=== PATIENT | female | born 1940 | race Caucasian/White ===

== ENCOUNTER 2018-11-11 08:11 | Inpatient (IN) | payer BC, OTHER ==
--- NOTE | 2018-11-11 08:56 | PDOC ---
History of Present Illness - General Chief Complaint: Bone Injury Stated Complaint: right hip fracture for surgery today Time Seen by Provider: 11/11/18 08:16 History Source: Patient Exam Limitations: No Limitations - History of Present Illness Initial Comments: 11/11/18 08:47 High functioning 77-year-old female presents from orthopedic process with diagnosis of right hip fracture. Patient was in usual state of good health, [place] the airport and [place] a mechanical trip and fall after her right foot got stuck on a carpet. She fell to the ground striking her right hip and right head. Regarding the head injury, she had localized pain to her right scalp for acute days which has resolved, never had generalized headache/vision change/speech change/nausea/vomiting/focal deficit. She does not take any blood thinners. Had right hip pain immediately, predominantly in the groin region, and was ambulating with discomfort throughout the week. She did sustain a second fall 4 days ago when she slipped off the edge of her bed and fell a short distance to the ground, striking her buttock and right hip again. Occasional paresthesias to the right leg, otherwise no motor or sensory deficit. Describes pain with some positional changes and weightbearing, otherwise has been ambulating with the use of a cane throughout the week. Saw orthopedics yesterday, x-ray confirmed a femoral neck fracture, brought in for management. Patient has no other complaints. No fevers or chills, no night sweats, no weight loss No chest pain or palpitations, no lightheadedness or syncope. No shortness of breath/cough. No leg swelling/discoloration. Has been taking naproxen for pain relief. Past History - Past Medical History Allergies/Adverse Reactions: Allergies Allergy/AdvReac Type Severity Reaction Status Date / Time No Known Allergies Allergy Verified 11/11/18 08:13 Home Medications: Ambulatory Orders Hydroxychloroquine Sulfate [Plaquenil] 200 mg PO BID 11/11/18 COPD: No Other medical history: Arthritis - Suicide/Smoking/Psychosocial Hx Smoking History: Never smoked Hx Alcohol Use: Yes (1 glass wine daily at night.) Drug/Substance Use Hx: No Review of Systems - Review of Systems Constitutional: No: Chills, Fever, Night Sweats HEENTM: No: Recent change in vision, Difficulty Swallowing Respiratory: No: Cough, Shortness of Breath Cardiac (ROS): No: Chest Pain, Edema, Lightheadedness, Syncope ABD/GI: No: Nausea, Vomiting : No: Incontinence Musculoskeletal: Yes: Joint Pain. No: Back Pain Integumentary: No: Bruising Neurological: Yes: Tingling. No: Headache, Weakness, Dizziness All Other Systems: Reviewed and Negative *Physical Exam - Vital Signs Last Vital Signs Temp Pulse Resp BP Pulse Ox 97.7 F 66 16 160/83 100 11/11/18 08:13 11/11/18 08:13 11/11/18 08:13 11/11/18 08:13 11/11/18 08:13 - Physical Exam Comments: 11/11/18 08:51 Vital signs as noted, blood pressure slightly elevated General: Patient is alert and in no acute distress. Speech is clear and appropriate. Head: Atraumatic and nontender. Resolving 1cm R occipital scalp hematoma without bruising or skull deformity. HEENT: Pupils are equal round and reactive to light, extraocular movements are intact. No facial deformity/tenderness, no septal hematoma. The oropharynx is clear. Neck: The trachea is midline, there is no stridor. There is no midline cervical spine tenderness, full range of motion of neck. Chest: Nontender, no ecchymosis or abrasions. Heart: S1-S2, regular rate and rhythm. No murmurs. Lungs: Clear to auscultation bilaterally. Symmetric chest rise. Abdomen: Soft/nontender/nondistended. Bowel sounds are normal. There is no abdominal or flank ecchymosis. Back/Pelvis: There is no midline spine tenderness or step-off. Pelvis is stable and nontender. Extremities: There is no extremity deformity or joint swelling. Tender to palpation over anterior R hip, otherwise intact ROM. No other focal bony tenderness throughout. 2+ distal pulses throughout. Neuro: Alert and oriented x3. Cranial nerves II through XII are intact. 5 out of 5 motor strength x4 extremities. Gait is antalgic favoring R hip using walker. Skin: No abrasions/hematomas/lacerations. Psych: Affect is appropriate. Heart Score/ECG Review #1 ECG reviewed & interpreted by me at: 08:54 General ECG Interpretation: Sinus Rhythm, Normal Rate (54), Normal Intervals ( qtc 434), No acute ischemic changes ED Treatment Course - LABORATORY CBC & Chemistry Diagram: 11/11/18 08:27 11/11/18 08:27 - RADIOLOGY Radiology Studies Ordered: Category Date Time Status CHEST - PA [RAD] Stat Radiology 11/11/18 08:17 Ordered HIP & PELVIS-RIGHT [RAD] Stat Radiology 11/11/18 08:17 Ordered Medical Decision Making - Medical Decision Making 11/11/18 08:56 77-year-old female status post mechanical fall 8 days ago with right hip fracture, neurovascularly intact and without any other injuries. Minor head injury, not on blood thinners, neurologically intact without red flags on history or physical exam. Preop labs, EKG Chest x-ray, right hip/pelvis x-ray Does not need pain medication Nothing by mouth for OR Dr. Sylvester aware and scheduled to operate Admit 11/11/18 09:17 labs nl, Na 134 receiving iv fluids. 11/11/18 10:15 cxr normal, confirmed impacted R hip fem neck fracture. Accepted for m/s inpatient by Dr. Rider, signout given to KJ Estrella. *DC/Admit/Observation/Transfer Diagnosis at time of Disposition: Closed right hip fracture Qualifiers: Encounter type: initial encounter Qualified Code(s): S72.001A - Fracture of unspecified part of neck of right femur, initial encounter for closed fracture - Discharge Dispostion Condition at time of disposition: Stable Decision to Admit order: Yes - Referrals Referrals: Hilton Valladares MD [Primary Care Provider] - - Patient Instructions - Post Discharge Activity
[2018-11-11] MEDS: SODIUM CHLORIDE 1,000 ML IV SCH (09:02)
[2018-11-11 09:08] LABS: BASO % 0.6 % (0-2.0); EOS % 1.5 % (0-4.5); HEMATOCRIT 39.5 % (32.4-45.2); HEMOGLOBIN 13.3 GM/dl (10.7-15.3); MCH 31.9 pg (25.7-33.7); MCHC 33.6 g/dl (32.0-36.0); MEAN CELL VOLUME 94.8 fl (80-96); NEUT % 67.9 % (42.8-82.8); PLATELET COUNT 272 K/MM3 (134-434); RBC 4.17 M/mm3 (3.60-5.2); RDW 13.1 % (11.6-15.6); WHITE BLOOD COUNT 4.9 K/mm3 (4.0-10.8)
[2018-11-11 09:15] LABS: ALBUMIN 3.8 g/dl (3.4-5.0); ALK PHOS 56 U/L (45-117); ANION GAP 9 MMOL/L (8-16); BILIRUBIN,TOTAL 0.7 mg/dl (0.2-1); BLOOD UREA NITROGEN 12 mg/dl (7-18); CALCIUM 9.1 mg/dl (8.5-10); CHLORIDE 100 mmol/L (98-107); CO2 25 mmol/L (21-32); CREATININE 0.6 mg/dl (0.55-1.3); GLUCOSE,RANDOM 93 mg/dl (74-106); POTASSIUM 4.4 mmol/L (3.5-5.1); SGOT/AST 20 U/L (15-37); SGPT/ALT 15 U/L (13-61); SODIUM 134 mmol/L (136-145); TOT PROT 6.3 g/dl (6.4-8.2)
[2018-11-11 09:19] LABS: INR 1.06 (0.82-1.09); PROTHROMBIN TIME (PATIENT) 11.8 SEC (10.2-13.0)
--- NOTE | 2018-11-11 11:03 | HP ---
CHIEF COMPLAINT: Right hip pain PCP: HISTORY OF PRESENT ILLNESS: 77 year-old female with a PMH significant for arthritis presented from her orthopedist's office with report of right hip fracture. Eight days ago she had a mechanical fall at an airport. She fell to the ground striking her right hip and right head. She immediately experienced right hip pain, predominantly in the groin region, and was ambulating with a cane with discomfort throughout the week. She sustained a second fall 4 days ago when she slipped off the edge of her bed and fell a short distance to the ground, striking her buttock and right hip again. Occasional paresthesias to the right leg, otherwise no motor or sensory deficit. Describes pain with some positional changes and weight bearing Saw orthopedics yesterday, x-ray confirmed a femoral neck fracture, brought in for management. ER course was notable for: (1) BP 181/94 (2) Right hip Xray: impaction fracture Recent Travel: No PAST MEDICAL HISTORY: Arthritis PAST SURGICAL HISTORY: None reported Social History: Smoking: never Alcohol: 1 glass wine at night Drugs: no Family History: Allergies No Known Allergies Allergy (Verified 11/11/18 08:13) HOME MEDICATIONS: Home Medications Medication Instructions Recorded Hydroxychloroquine Sulfate 200 mg PO BID 11/11/18 [Plaquenil] REVIEW OF SYSTEMS CONSTITUTIONAL: Absent: fever, chills, diaphoresis, generalized weakness, malaise, loss of appetite, weight change HEENT: Absent: rhinorrhea, nasal congestion, throat pain, throat swelling, difficulty swallowing, mouth swelling, ear pain, eye pain, visual changes CARDIOVASCULAR: Absent: chest pain, syncope, palpitations, irregular heart rate, lightheadedness , peripheral edema RESPIRATORY: Absent: cough, shortness of breath, dyspnea with exertion, orthopnea, wheezing, stridor, hemoptysis GASTROINTESTINAL: Absent: abdominal pain, abdominal distension, nausea, vomiting, diarrhea, constipation, melena, hematochezia GENITOURINARY: Absent: dysuria, frequency, urgency, hesitancy, hematuria, flank pain, genital pain MUSCULOSKELETAL: +right hip pain Absent: myalgia, arthralgia, joint swelling, back pain, neck pain SKIN: Absent: rash, itching, pallor HEMATOLOGIC/IMMUNOLOGIC: Absent: easy bleeding, easy bruising, lymphadenopathy, frequent infections ENDOCRINE: Absent: unexplained weight gain, unexplained weight loss, heat intolerance, cold intolerance NEUROLOGIC: Absent: headache, focal weakness or paresthesias, dizziness, unsteady gait, seizure, mental status changes, bladder or bowel incontinence PSYCHIATRIC: Absent: anxiety, depression, suicidal or homicidal ideation, hallucinations. PHYSICAL EXAMINATION Vital Signs - 24 hr 11/11/18 11/11/18 11/11/18 08:13 08:30 09:57 Temperature 97.7 F Pulse Rate 66 Pulse Rate [ 61 Right Radial] Respiratory 16 Rate Blood Pressure 181/94 H Blood Pressure 160/83 149/81 [Arm] O2 Sat by Pulse 100 100 Oximetry (%) GENERAL: Awake, alert, and fully oriented, in no acute distress. LUNGS: Breath sounds equal, clear to auscultation bilaterally. No wheezes, and no crackles. No accessory muscle use. HEART: Regular rate and rhythm, normal S1 and S2 ABDOMEN: Soft, nontender, not distended RLE: surgical dressing with minimal strikethrough, no surrounding erythema, warmth, fluctuance NEUROLOGICAL: Cranial nerves II-XII intact. Normal speech. Observed walking with PT. Laboratory Results - last 24 hr 11/11/18 11/11/18 11/11/18 08:27 08:27 08:27 WBC 4.9 RBC 4.17 Hgb 13.3 Hct 39.5 MCV 94.8 MCH 31.9 MCHC 33.6 RDW 13.1 Plt Count 272 MPV 8.0 Absolute Neuts (auto) 3.3 Neutrophils % 67.9 Lymphocytes % 21.0 Monocytes % 9.0 Eosinophils % 1.5 Basophils % 0.6 PT with INR 11.8 INR 1.06 PTT (Actin FS) Sodium 134 L Potassium 4.4 Chloride 100 Carbon Dioxide 25 Anion Gap 9 BUN 12 Creatinine 0.6 Creat Clearance w eGFR 97.20 Random Glucose 93 Calcium 9.1 Total Bilirubin 0.7 AST 20 ALT 15 Alkaline Phosphatase 56 Total Protein 6.3 L Albumin 3.8 Blood Type Antibody Screen 11/11/18 11/11/18 11/11/18 08:27 08:40 08:45 WBC RBC Hgb Hct MCV MCH MCHC RDW Plt Count MPV Absolute Neuts (auto) Neutrophils % Lymphocytes % Monocytes % Eosinophils % Basophils % PT with INR INR PTT (Actin FS) 28.9 Sodium Potassium Chloride Carbon Dioxide Anion Gap BUN Creatinine Creat Clearance w eGFR Random Glucose Calcium Total Bilirubin AST ALT Alkaline Phosphatase Total Protein Albumin Blood Type O POSITIVE O POSITIVE Antibody Screen Negative ASSESSMENT/PLAN: 77 year-old female with a PMH significant for arthritis. Admitted for right hip fracture. Right femoral neck fracture --POD #1 s/p right hip cannulated screws --perioperative antibiotics per surgery --ASA 325mg daily --IV fluids Arthritis --continue Plaquenil DVT prophylaxis: SCDs, TEDs, oob, ambulation, PT, ASA 325mg daily Visit type - Emergency Visit Emergency Visit: Yes ED Registration Date: 11/11/18 Care time: The patient presented to the Emergency Department on the above date and was hospitalized for further evaluation of their emergent condition. - New Patient This patient is new to me today: No - Critical Care Critical Care patient: No
--- NOTE | 2018-11-11 11:40 | EKG ---
Test Reason : Blood Pressure : / mmHG Vent. Rate : 054 BPM Atrial Rate : 054 BPM P-R Int : 158 ms QRS Dur : 102 ms QT Int : 458 ms P-R-T Axes : 027 042 027 degrees QTc Int : 434 ms SINUS BRADYCARDIA OTHERWISE NORMAL ECG NO PREVIOUS ECGS AVAILABLE Confirmed by David Danielle MD ([id number]) on 11/11/2018 11:39:49 AM Referred By: DOUG FIGUEROA Confirmed By:David Danielle MD
[2018-11-11] MEDS ORDERED: PROPOFOL 20 ML ONE (13:39)
[2018-11-11] MEDS ORDERED: MIDAZOLAM HCL 2 MG/2 ML SINGLE DOSE VIAL ONE (13:39)
[2018-11-11] MEDS ORDERED: LIDOCAINE HCL/PF 2% SDV 5ML VIAL ONE (13:40)
[2018-11-11] MEDS ORDERED: LACTATED RINGERS SOLUTION 1,000 ML IV SCH (14:15)
--- NOTE | 2018-11-11 14:25 | OP ---
Operative Note - Note: Operative Date: 11/11/18 (eric) Pre-Operative Diagnosis: right femoral neck fx Operation: right hip cannulated screws Post-Operative Diagnosis: Same as Pre-op Surgeon: Gallo Sylvester Anesthesiologist/WEB SERVICES MANAGER: Debbi Desai Anesthesia: General, Local Estimated Blood Loss (mls): 5 Operative Report Dictated: Yes
[2018-11-11] MEDS ORDERED: ACETAMINOPHEN 1000 MG/100 ML VIAL (NON FORMULARY) IVPB ONE (15:44)
--- NOTE | 2018-11-11 16:03 | CONS ---
DATE OF CONSULTATION: 11/11/2018 ORTHOPEDIC CONSULTATION HISTORY OF PRESENT ILLNESS: The patient is a 77-year-old female status post fall one week ago complaining of persistent right hip pain. She saw me in the office yesterday, and I diagnosed her with femoral neck fracture. She insisted she needed to go home to help take care of the dog, and said she would admit herself through the emergency room for operative intervention today. Patient was n.p.o. last night and presented to the emergency room this morning at 8 o'clock. Evaluation there revealed she still had equal limb length, pain with internal-external rotation with excellent range of motion. Right knee ankle and toes neurovascularly intact. No undue swelling, ecchymosis, or erythema. X-rays in the hospital again confirmed the nondisplaced nature of her right femoral neck fracture. IMPRESSION: Right femoral neck fracture, nondisplaced discussed with her and with her , Dr. Hilton Valladares. Patient will go for cannulated screw operation later today. SANDIE URRUTIA M.D. [id number]
--- NOTE | 2018-11-11 16:58 | OP ---
DATE OF OPERATION: 11/11/2018 PREOPERATIVE DIAGNOSIS: Impacted right femoral neck fracture. POSTOPERATIVE DIAGNOSIS: Impacted right femoral neck fracture. PROCEDURE: Cannulated screws, right femoral neck fracture. SURGICAL ATTENDING: Gallo Sylvester M.D. PRODUCTION LEADER: Jonathan Torres ANESTHESIA: LMA. CLOSURE: Two 6.5 cannulated screws and one 8.0 cannulated screw to the fracture, 2-0 Vicryl and Steri-Strips to skin. ESTIMATED BLOOD LOSS: Negligible. COMPLICATIONS: None. CONDITION: To recovery in stable condition. DESCRIPTION OF OPERATIVE PROCEDURE: Patient taken to the operating room on November 11, 2018. General anesthesia with LMA was administered per the anesthesiologist. IV Kefzol was administered prophylactically prior to the case. The patient was fastened to the fracture table with all prominences well padded. The fluoroscopy was used to confirm excellent position of the fracture. The right hip area was prepped and draped in the usual sterile fashion with use of the shower curtain. A 1-inch incision over the lateral aspect of the thigh was incised with a 15 sharp dissection was carried through the fascia. Periosteal elevator was used to clear the aspect of the femur. Three guidewires from the [place] 6.5 cannulated screw set were drilled in an L formation being parallel to each other: 2 posterior, 1 anterior, 2 distal and proximal. Proper placement of all wires confirmed in the AP and lateral plane, base, with the image intensifier. Each wire was then set to gauge, then screw with the appropriate size lag screw. The most distal screw was an 8.0 screw, the other 2 were 6.5. All other 85-mm length. Excellent compression of the fracture was obtained. No traction was used, so we did not need to release the traction during the case. The wires were pulled. X-rays in the AP, lateral, and around the clock views revealed excellent position of the screws, with no penetration of the hip joint. The wound was irrigated with copious amounts of irrigation. The subcutaneous was closed with 2-0 Vicryl, and the skin with Steri-Strips. A sterile Aquacel dressing was applied. Patient was awakened from anesthesia, transferred to recovery in stable condition. No complications. Estimated blood loss negligible. GALLO SYLVESTER M.D. [id number]
[2018-11-11] MEDS: HYDROXYCHLOROQUINE SO4 200 MG TABLET (FP) PO SCH (21:28)
[2018-11-11] MEDS: CEFAZOLIN 1 GM/D5W 1 GM/50 ML BAG IVPB SCH (21:28)
[2018-11-11] MEDS: ACETAMINOPHEN 325 MG TABLET (FP) PO PRN (21:31)
[2018-11-12] MEDS: CEFAZOLIN 1 GM/D5W 1 GM/50 ML BAG IVPB SCH (04:33)
[2018-11-12] MEDS: ACETAMINOPHEN 325 MG TABLET (FP) PO PRN ×2 (08:11→15:53)
--- NOTE | 2018-11-12 08:31 | PN ---
Progress Note (short form) - Note Progress Note: Ortho Pt seen and examined s/p right hip cannulated screws pod #1 Selected Entries 11/12/18 04:00 Temperature 98.0 F Pulse Rate 51 L Respiratory 18 Rate Blood Pressure 148/65 Laboratory Tests 11/12/18 07:42 WBC Pending RBC Pending Hgb Pending Plt Count Pending Dressing c/d/i, calf soft, nt good ROM, nvi a/p PT, wbat dvt ppx pain control d/c home tomorrow if stable
[2018-11-12] MEDS ORDERED: MAGNESIUM HYDROX 2400MG/30ML ORAL SUSPENSION 30 ML CUP PO PRN (08:36)
--- NOTE | 2018-11-12 08:43 | PN ---
Physical Exam: SUBJECTIVE: Patient seen and examined oob to chair. Pain is improved, has been walking with PT. + 69 OBJECTIVE: Vital Signs Period Temp Pulse Resp BP Sys/Adams Pulse Ox Last 24 Hr 97.7 F-98.6 F 51-78 12-18 118-171/61-84 96-100 GENERAL: The patient is awake, alert, and fully oriented, in no acute distress. LUNGS: Breath sounds equal, clear to auscultation bilaterally, no wheezes, no crackles, no accessory muscle use. HEART: Regular rate and rhythm, S1, S2 ABDOMEN: Soft, nontender, nondistended, normoactive bowel sounds RLE: surgical dressing with minimal strikethrough, no surrounding erythema, warmth, fluctation NEUROLOGICAL: Cranial nerves II through XII grossly intact. Normal speech Laboratory Results - last 24 hr 11/11/18 11/11/18 11/11/18 08:27 08:27 08:27 WBC 4.9 RBC 4.17 Hgb 13.3 Hct 39.5 MCV 94.8 MCH 31.9 MCHC 33.6 RDW 13.1 Plt Count 272 MPV 8.0 Absolute Neuts (auto) 3.3 Neutrophils % 67.9 Lymphocytes % 21.0 Monocytes % 9.0 Eosinophils % 1.5 Basophils % 0.6 PT with INR 11.8 INR 1.06 PTT (Actin FS) Sodium 134 L Potassium 4.4 Chloride 100 Carbon Dioxide 25 Anion Gap 9 BUN 12 Creatinine 0.6 Creat Clearance w eGFR 97.20 Random Glucose 93 Calcium 9.1 Total Bilirubin 0.7 AST 20 ALT 15 Alkaline Phosphatase 56 Total Protein 6.3 L Albumin 3.8 Blood Type Antibody Screen 11/11/18 11/11/18 11/11/18 08:27 08:40 08:45 WBC RBC Hgb Hct MCV MCH MCHC RDW Plt Count MPV Absolute Neuts (auto) Neutrophils % Lymphocytes % Monocytes % Eosinophils % Basophils % PT with INR INR PTT (Actin FS) 28.9 Sodium Potassium Chloride Carbon Dioxide Anion Gap BUN Creatinine Creat Clearance w eGFR Random Glucose Calcium Total Bilirubin AST ALT Alkaline Phosphatase Total Protein Albumin Blood Type O POSITIVE O POSITIVE Antibody Screen Negative Active Medications Generic Name Dose Route Start Last Admin Trade Name Freq PRN Reason Stop Dose Admin Acetaminophen 650 mg 11/11/18 21:07 11/12/18 08:11 Tylenol - PO 650 mg Q6H PRN Administration PAIN LEVEL 1-5 Aspirin 325 mg 11/12/18 10:00 Asa - PO DAILY JUNE Docusate Sodium 100 mg 11/12/18 08:36 Colace - PO BID PRN CONSTIPATION Hydroxychloroquine Sulfate 200 mg 11/11/18 22:00 11/11/18 21:28 Plaquenil - PO 200 mg BID JUNE Administration Sodium Chloride 1,000 mls @ 125 mls/hr 11/11/18 08:30 11/11/18 09:02 Normal Saline - IV 125 mls/hr ASDIR JUNE Administration Magnesium Hydroxide 30 ml 11/12/18 08:36 Milk Of Magnesia - PO PRN PRN CONSTIPATION ASSESSMENT/PLAN 77 year-old female with a PMH significant for arthritis. Admitted for right hip fracture. Right femoral neck fracture s/p right hip cannulated screws --POD #1 --perioperative antibiotics per surgery --ASA 325mg daily --Tylenol PRN for pain --bowel regimen Arthritis --continue Plaquenil DVT prophylaxis: SCDs, TEDs, oob, ambulation, PT, ASA 325mg daily Visit type - Emergency Visit Emergency Visit: Yes ED Registration Date: 11/11/18 Care time: The patient presented to the Emergency Department on the above date and was hospitalized for further evaluation of their emergent condition. - New Patient This patient is new to me today: No - Critical Care Critical Care patient: No
[2018-11-12 08:53] LABS: BASO % 0.5 % (0-2.0); EOS % 0.6 % (0-4.5); HEMATOCRIT 33.5 % (32.4-45.2); HEMOGLOBIN 11.4 GM/dl (10.7-15.3); LYMPH % 20.6 % (8-40); MCH 32.2 pg (25.7-33.7); MEAN CELL VOLUME 94.8 fl (80-96); MEAN PLT VOLUME 8.1 fl (7.5-11.1); MONO % 8.7 % (3.8-10.2); NEUT % 69.6 % (42.8-82.8); PLATELET COUNT 215 K/MM3 (134-434); RBC 3.53 M/mm3 (3.60-5.2); RDW 13.1 % (11.6-15.6); WHITE BLOOD COUNT 7.6 K/mm3 (4.0-10.8)
[2018-11-12 09:10] LABS: ALBUMIN 3.1 g/dl (3.4-5.0); ALK PHOS 49 U/L (45-117); ANION GAP 10 MMOL/L (8-16); BILIRUBIN,TOTAL 0.6 mg/dl (0.2-1); BLOOD UREA NITROGEN 15 mg/dl (7-18); CALCIUM 8.5 mg/dl (8.5-10); CHLORIDE 101 mmol/L (98-107); CO2 23 mmol/L (21-32); CREATININE 0.6 mg/dl (0.55-1.3); GLUCOSE,RANDOM 91 mg/dl (74-106); MAGNESIUM 1.8 mg/dL (1.8-2.4); POTASSIUM 3.6 mmol/L (3.5-5.1); SGOT/AST 16 U/L (15-37); SGPT/ALT 12 U/L (13-61); SODIUM 134 mmol/L (136-145); TOT PROT 5.3 g/dl (6.4-8.2)
[2018-11-12] MEDS: HYDROXYCHLOROQUINE SO4 200 MG TABLET (FP) PO SCH ×2 (09:49→21:25)
[2018-11-12] MEDS: SODIUM CHLORIDE 1,000 ML IV SCH (09:49)
[2018-11-12] MEDS: ASPIRIN 325 MG TABLET PO SCH (09:49)
[2018-11-12] MEDS: DOCUSATE SODIUM 100 MG CAPSULE (FP) PO PRN ×2 (09:49→21:25)
--- NOTE | 2018-11-12 12:49 | PN ---
Progress Note (short form) - Note Progress Note: Anesthesia post op note POD#1, S/p right hip cannulated screws under general anesthesia. VSS. Pain 0/ 10. PT. No apparent post anesthesia complications. Signed off.
[2018-11-13] MEDS: ACETAMINOPHEN 325 MG TABLET (FP) PO PRN ×2 (05:48→12:03)
[2018-11-13 08:44] LABS: HEMATOCRIT 34.2 % (32.4-45.2); HEMOGLOBIN 11.6 GM/dl (10.7-15.3); MCH 32.5 pg (25.7-33.7); MEAN CELL VOLUME 95.5 fl (80-96); PLATELET COUNT 232 K/MM3 (134-434); RBC 3.58 M/mm3 (3.60-5.2); RDW 13.2 % (11.6-15.6); WHITE BLOOD COUNT 5.9 K/mm3 (4.0-10.8)
[2018-11-13] MEDS: ASPIRIN 325 MG TABLET PO SCH (09:18)
[2018-11-13] MEDS: HYDROXYCHLOROQUINE SO4 200 MG TABLET (FP) PO SCH (09:18)
[2018-11-13] MEDS: DOCUSATE SODIUM 100 MG CAPSULE (FP) PO PRN (09:20)
--- NOTE | 2018-11-13 09:55 | PN ---
Progress Note (short form) - Note Progress Note: Ortho Pt seen and examined s/p right hip cannulated screws pod #2 Selected Entries 11/13/18 06:00 Temperature 98.5 F Pulse Rate 53 L Respiratory 19 Rate Blood Pressure 147/66 Laboratory Tests 11/13/18 07:40 WBC 5.9 Hgb 11.6 Hct 34.2 Plt Count 232 Dressing c/d/i, calf soft, nt good ROM, nvi a/p PT, wbat dvt ppx pain control d/c home today f/u in 1 week
--- NOTE | 2018-11-13 10:48 | HOSP ---
Subjective - Review of Symptoms Events since last encounter: Patient was discharged by the surgery service. She was not seen or examined by the hospitalist service today. Physical Examination Vital Signs: Vital Signs Temperature 98.5 F 11/13/18 06:00 Pulse Rate 53 L 11/13/18 06:00 Respiratory Rate 17 11/13/18 09:25 Blood Pressure 147/66 11/13/18 06:00 O2 Sat by Pulse Oximetry (%) 96 11/13/18 06:21 Labs: CBC, BMP 11/13/18 07:40 11/12/18 07:42
[2018-11-13 14:44] VITALS: BP 127/62; PULSE 57; TEMP 97.7
== END 2018-11-13 18:46 | disposition home health service (06) | DRG 482 ==
LOC: FER 08:11 → FM/S 09:18
PROVIDERS: ATTEND Nurse Practitioner Acute Care
PROC: 0QH634Z Insertion of Internal Fixation Device into Right Upper Femur, Percutaneous Approach (ICD-10-PCS; principal; 2018-11-11 12:45)
DX: S72.091A Other fracture of head and neck of right femur, initial encounter for closed fracture (principal); S09.8XXA Other specified injuries of head, initial encounter; W01.0XXA Fall on same level from slipping, tripping and stumbling without subsequent striking against object, initial encounter; Y93.01 Activity, walking, marching and hiking; Y92.520 Airport as the place of occurrence of the external cause; Y99.8 Other external cause status; M19.90 Unspecified osteoarthritis, unspecified site
CPT/HCPCS: 36415; 71045-TC-FY; 73501-TC-RT-FY; 73523-TC-FY; 76000-TC-FY; 80053; 83735; 85025; 85027; 85610; 85730; 86850; 86900; 86901; 93005; 94760; 97116-GP; 97162-GP; 99284-25; J7030

== ENCOUNTER 2020-01-19 07:56 | Day surgery (SDC) | payer BC, OTHER ==
[2020-01-12 13:44] VITALS: BMI 21.7
--- NOTE | 2020-01-19 07:38 | HP ---
[facility] - Chief Complaint Chief Complaint: right hip pain - Past Medical History Allergies/Adverse Reactions: Allergies Allergy/AdvReac Type Severity Reaction Status Date / Time No Known Allergies Allergy Verified 11/11/18 08:13 - Current Medications Current Medications: Home Medications Medication Instructions Recorded Aspirin [ASA -] 325 mg PO DAILY tablet 11/13/18 Abaloparatide [Tymlos] 1.56 ml SQ HS 01/12/20 Calcium Carbonate [Calcium] 600 mg PO DAILY 01/12/20 Cholecalciferol (Vitamin D3) 2,000 unit PO DAILY 01/12/20 [Vitamin D3] Cyclosporine [Restasis] 1 each OU BID 01/12/20 [facility]ellite Physical Exam - Physical Examination General Appearance: Well Nourished, Well Developed, Alert & Oriented x3 ENT: Clear Lung: Normal air movement Extremities: Other (right hip- well healed incision, + ttp, good rom, nvi) Neurological: Intact, Alert, Oriented [facility] Impression/Plan - Impression/Plan Impression: right hip painful hardware Operative Procedure: right hip removal of screws Date to be Performed: 01/19/20
[2020-01-19] MEDS ORDERED: MIDAZOLAM HCL 2 MG/2 ML SINGLE DOSE VIAL ONE (09:51)
[2020-01-19] MEDS ORDERED: DEXAMETHASONE SOD PHOSPHATE 4 MG/1 ML VIAL ONE ×2 (10:07→10:25)
[2020-01-19] MEDS ORDERED: ONDANSETRON 4 MG/2 ML VIAL ONE ×2 (10:07→10:25)
[2020-01-19] MEDS ORDERED: ceFAZolin SODIUM 1 GM VIAL ONE ×2 (10:11→10:25)
[2020-01-19] MEDS ORDERED: PROPOFOL 20 ML ONE (10:23)
[2020-01-19] MEDS ORDERED: LIDOCAINE HCL/PF 2% SDV 5ML VIAL ONE (10:25)
[2020-01-19] MEDS ORDERED: GLYCOPYRROLATE 0.2 MG/1 ML VIAL ONE (10:25)
[2020-01-19] MEDS ORDERED: ePHEDrine SULFATE 50 MG/1 ML AMPULE ONE (10:25)
[2020-01-19] MEDS ORDERED: oxyCODONE HCL 5 MG TABLET PO PRN ×2 (12:06)
[2020-01-19] MEDS ORDERED: ONDANSETRON 4 MG/2 ML VIAL IVPUSH PRN (12:06)
[2020-01-19] MEDS ORDERED: LACTATED RINGERS SOLUTION 1,000 ML IV SCH (12:15)
--- NOTE | 2020-01-19 12:56 | OP ---
Operative Note - Note: Operative Date: 01/19/20 (eric) Pre-Operative Diagnosis: right hip painful hardware Operation: right hip removal and exchange of screws Post-Operative Diagnosis: Same as Pre-op Surgeon: Gallo Sylvester Anesthesia: General, Local Specimens Removed: screws Estimated Blood Loss (mls): 5
[2020-01-19 16:08] VITALS: TEMP 97.4
[2020-01-19 17:12] VITALS: BP 124/66; PULSE 56
--- NOTE | 2020-01-20 11:47 | OP ---
DATE OF OPERATION: 01/19/2020 PREOPERATIVE DIAGNOSIS: Painful hardware, right hip. POSTOPERATIVE DIAGNOSIS: Painful hardware, right hip. PROCEDURE: Removal of hardware and refixation of right hip right femoral neck. SURGICAL ATTENDING: Gallo Sylvester MD ANESTHESIA: Spinal. CLOSURE: Three cannulated screws from the [place] cannulated screw set, 0 Vicryl fascia, 2-0 subcutaneous, and steve for skin. ESTIMATED BLOOD LOSS: Less than 50 mL. COMPLICATIONS: None. CONDITION: To recovery room in stable condition. DESCRIPTION OF OPERATIVE PROCEDURE: Patient taken to the operating room on January 19, 2020. Spinal anesthesia was administered by the anesthesiologist. IV Kefzol was administered prophylactically prior to the case. Patient was placed on the fracture table with all prominences well padded. Right hip area was prepped and draped in the usual sterile fashion. The previously used incision site for the first application of the screws 9 months ago was incised, hemostasis achieved with Bovie cautery. Sharp dissection was carried through the fascia. Digital palpation was used until the screws were palpated. The guidewire from the 6.5 set was threaded through the cannula of each one of the screws, confirming the appropriate position. Each one of these screws was then backed out and removed. They were then measured on the back table, and then screws of a shorter length were reinserted. The most inferior screw was an 8.0 screw. The more superior 2 screws were 6.5 screws. All achieved excellent fixation. All were then screwed flush with the lateral cortex and were confirmed not to penetrate the hip joint. The hip was then irrigated with copious amounts of irrigation. The fascia was tacked closed with one 0 Vicryl; 2-0 was used for subcutaneous, and steve were used for skin. A sterile pressure dressing was applied. Patient awakened from anesthesia and transferred to recovery room in stable condition. No complications. Estimated blood loss negligible. Macrina [id number]
== END 2020-01-19 17:00 | disposition home or self-care (01) ==
LOC: FASU 07:56
PROVIDERS: ATTEND Orthopaedic Surgery
PROC: 0NP004Z Removal of Internal Fixation Device from Skull, Open Approach (ICD-10-PCS; 2020-01-19)
PROC: 0NH004Z Insertion of Internal Fixation Device into Skull, Open Approach (ICD-10-PCS; 2020-01-19)
PROC: 0SPF04Z Removal of Internal Fixation Device from Right Ankle Joint, Open Approach (ICD-10-PCS; principal; 2020-01-19 10:17)
DX: T84.84XA Pain due to internal orthopedic prosthetic devices, implants and grafts, initial encounter (principal); Y79.1 Therapeutic (nonsurgical) and rehabilitative orthopedic devices associated with adverse incidents; Y92.9 Unspecified place or not applicable
CPT/HCPCS: 73502-TC-RT-FY; 94760